=== PATIENT | female | born 1940 | race Caucasian/White ===

== ENCOUNTER 2023-10-27 06:47 | Day surgery (SDC) | payer MEDICARE, OTHER, SELFPAY ==
--- NOTE | 2023-10-10 13:19 | HP.PCM.OB_ITS ---
History and Physical Date of Admission: 10/27/23 Expand All Collapse All Pre-Op History and Physical HPI: The patient is a 82 year old female presenting for discussion regarding PMB- had light bleeding in August was switched from tamoxifen to letrozole. pre-operative visit. She is scheduled for Hysteroscopy D&C with Carolina, for PMB, thickened EM, on Tamoxifen on 10/27/23. Procedure discussed along with risks, benefits and complications. Other alternatives discussed for management. Consent form signed? Yes. PAST MEDICAL HISTORY PAST MEDICAL HISTORY Diagnosis Date ? Breast cancer (HCC) ? Essential hypertension ? Fungal infection in blood ? Pneumonia, viral PAST SURGICAL HISTORY PAST SURGICAL HISTORY Procedure Laterality Date ? LIGATE FALLOPIAN TUBE Bilateral ? PAST SURGICAL HISTORY OF Right lumpectomy ? PAST SURGICAL HISTORY OF Left 03/2022 left hip replacement ? PAST SURGICAL HISTORY OF Bilateral cataract removal CURRENT MEDICATIONS Current Outpatient Medications Medication Sig Dispense Refill ? methotrexate 2.5 mg tablet Take 3 tablets by mouth every Monday. 36 tabl et 0 ? folic acid 1 mg tablet Take 1 tablet by mouth once daily. 90 tablet 1 ? Etanercept (ENBREL SURECLICK) 50 mg/mL (1 mL) Inject 1 mL subcutaneously one time a week. 4 mL 5 ? hydrOXYchloroQUINE (PLAQUENIL) 200 mg tablet Take 1 tablet by mouth once daily. 90 tablet 1 ? predniSONE (DELTASONE) 5 mg tablet Take 1 tablet by mouth two times a day. 120 tablet 0 ? letrozole (FEMARA) 2.5 mg tablet Take 1 tablet by mouth once daily. 30 tablet 2 ? bisacodyl EC (DULCOLAX) 5 mg EC tablet Take 5 mg by mouth. ? verapamil SR (CALAN SR) 120 mg CR tablet ? traMADol (ULTRAM) 50 mg tablet Take 50 mg by mouth every 6 hours as needed for pain. ? acetaminophen (TYLENOL) 325 mg tablet Take 2 tablets by mouth every 6 hours as needed for pain. ? cyanocobalamin (VITAMIN B-12) 1,000 mcg tab Take 1 tablet by mouth once daily. ? hydrALAZINE (APRESOLINE) 50 mg tablet Take 1 tablet by mouth three times a day. ? nebivolol (BYSTOLIC) 5 mg tablet Take 1 tablet by mouth every morning. ? rosuvastatin (CRESTOR) 10 mg tablet Take 1 tablet by mouth once daily. ? verapamil SR (CALAN SR) 240 mg CR tablet Take 120 mg by mouth daily at bedtime. ? torsemide (DEMADEX) 20 mg tablet Take 1 tablet by mouth once daily. 30 tablet 0 ? gabapentin (NEURONTIN) 100 mg capsule Take 2 capsules by mouth every 12 hours for 30 days. No current facility-administered medications for this visit. ALLERGIES: Ondansetron, Oxycodone, Oxycodone-Acetaminophen, and Promethazine PERSONAL HISTORY: SOCIAL HISTORY Social History Tobacco Use ? Smoking status: Never Passive exposure: Never ? Smokeless tobacco: Never Vaping Use ? Vaping Use: Never used Substance Use Topics ? Alcohol use: Never ? Drug use: Never FAMILY HISTORY: FAMILY HISTORY No family history on file. REVIEW OF SYMPTOMS: negative except as noted above PHYSICAL EXAMINATION: VITALS: Blood pressure 128/74, pulse 73, SpO2 95%. GENERAL: The patient is well nourished, well hydrated in no acute distress. , The patient is oriented to time, place, and person. NECK: full range of motion LUNGS: Clear to auscultation bilaterally. no wheezes, rhonchi or rales HEART: Regular rate and rhythm, Normal heart sounds, and No murmurs or gallops GENITALIA: exam deferred WET PREP: Not indicated Uterus: -Size: 6.6 x 3.3 x 4.3 cm -Orientation: Anteverted -Endometrial echo complex: Evaluation of the endometrium was adequate. Multiple tiny cysts are visualized. The endometrial echo complex measured 1.0 cm. -Cervix: Unremarkable. -Adenomyosis assessment: There are no sonographic findings of adenomyosis. -Fibroids: There are no fibroids. Right Ovary: Not visualized. Left Ovary: Not visualized. Free Fluid: No abnormal free fluid is present. IMPRESSION: 82yo with PMB, Thickened EM - h/o Tamoxifen use. PLAN: Hysteroscopy, D&C with symphion Pt has been counseled on risks/benefits and alternatives of surgery including but not limited to anesthesia, bleeding, infection, uterine perforation with subsequent injury to pelvic structures including bowel, bladder, ureters and vessels. Pt wishes to proceed with surgery at this time. Pre and post op instructions reviewed - had labs done and EKG/ECHO done this year. I have reviewed and updated past medical and surgical history, medications and allergies Chikis Laguerre MD
[2023-10-27] VITALS (8 sets, daily range): BP systolic 125–143; BP diastolic 52–65; PULSE 55–64; RESP 16–18; TEMP 36.1–36.4; O2SAT 93–97; BMI 28.0
[2023-10-27] MEDS: Lactated Ringers 1,000 ML 15 ML IV (07:30)
--- NOTE | 2023-10-27 08:30 | EMB_PTH ---
PATIENT: LARISSA MCDUFFIE LOC: [facility] [place] U#:[id number] AGE/SX: 82/F ROOM: RE10/27/[address]: Dr. Chikis Currie, MDDOB: 1940 BED: DIS: 10/27/2023 SPEC #: [id number] RECD: 10/27/23 10:50 STATUS: MANUEL GIFFORD #: [id number] KISHAN: 10/27/23 08:[address]: Chikis Currie DEPT: SURGICAL PATHOLOGY RECD BY: Anamaria Reyes ENTERED: 10/27/23 12:34 SP TYPE: ENDOM BX/C DAWSON DR: Dr. Nando Summers MD Tissues: Endometrium, NOS Procedures: Surgery Specimen Level IV HEADER OPERATION: Hysteroscopy, D&C, symphion PRE-OP DIAGNOSIS: Postmenopausal bleeding, thickened endometrium TISSUE SUBMITTED: Endometrial curettings MICROSCOPIC DIAGNOSIS Endometrium, curettings: Scant fragments of benign inactive endometrium. Strips of benign superficial squamous mucosa. / 10/30/2023 MICROSCOPIC DESCRIPTION Slides are reviewed. GROSS DESCRIPTION Received in fixative is one container labeled with the patient's name and designated Endometrial curettings. The specimen consists of multiple fragments of hemorrhagic mucoid tissue that in aggregate measure 2.5 x 1.0 x 0.1 cm. The specimen is totally submitted in one cassette. AISHWARYA/ 10/27/2023 TC:5 CPT:15974
--- NOTE | 2023-10-27 08:36 | PRE.ANES_ITS ---
ASA Classification* ASA Classification ASA Classification: 2 Assessment & Plan Anesthesia* Anesthesia Assessment Anesthesia Assessment: Discussed sedation and/or anesthesia options, risks, benefits, and alternatives with patient/parents/legal guardian/POA. Questions invited. The patient/parents/legal guardian/POA seems to understand and agrees to proceed with anesthesia plan. Reviewed the physical assessment, medical history, allergy history and patient home medications list prior to surgery/procedure/anesthetic and documented any changes. Performed airway and anesthesia risk assessments. Anesthesia Type Anesthesia Type: MAC Pre-Assessment Diagnosis/Proposed Procedure Planned Operative Procedure(s): HYSTEROSCOPY D&C Anesthesia History Anesthesia History - occupational health physiotherapist: Anesthesia History - occupational health physiotherapist Hx Hospitalization Yes: 07/2023 DX WITH RA DUE 10/17/23 15:23 HYPERTENSION,EDEMA AND PAIN Any Problems With Anesthesia No 10/17/23 15:23 Cholinesterase deficiency No 10/17/23 15:23 You/Your Family Experience No 10/17/23 15:23 fever (hyperthermia) with Relationship Recent Exposure to Contagious No 10/27/23 07:30 Disease Does patient have nerve No 10/17/23 15:23 stimulator Patient instructed to have device shut off --Does patient have Pacemaker No 10/27/23 07:30 or ICD? When Was Last Pacemaker Check QUESTION #4 FULL TEXT: You/Your Family Experience fever (hyperthermia) with Anesthesia Last Oral Intake Last Oral intake: Last Oral Intake NPO since 19:00 10/27/23 07:30 Meds taken in AM with sips of Yes 10/27/23 07:30 water? Meds patient instructed to gabapentin, hydralazine, 10/27/23 07:30 take am of surgery nebivolol, hydroxychloroquine PONV PONV - occupational health physiotherapist: PONV - occupational health physiotherapist Female Yes 10/17/23 15:23 HX of Motion Sickness No 10/17/23 15:23 HX of N/V After Surgery No 10/17/23 15:23 Non-Smoker Yes 10/17/23 15:23 Duration of Surgery greater No 10/17/23 15:23 than 60 minutes Number of Risk Factors 2 10/17/23 15:23 PONV Score Moderate Risk 10/17/23 15:23 Height & Weight Height & Weight: Anesthesia: Height & Weight Height 5 ft 4 in 10/27/23 07:30 Weight: 74 kg 10/27/23 07:30 Body Mass Index (BMI) 28.0 10/27/23 07:30 Respiratory Assessment Respiratory Assessment - occupational health physiotherapist: Respiratory Tract Infection Hx - occupational health physiotherapist Hx Respiratory Tract Infection No 10/17/23 15:23 STOP Sleep Apnea STOP Sleep Apnea - occupational health physiotherapist: STOP Sleep Apnea - occupational health physiotherapist Hx Hypertension Yes: CONTROLLED WITH MEDS 10/17/23 15:23 Hx Sleep Apnea No 10/17/23 15:23 CPAP BIPAP Do you snore loudly (louder No 10/17/23 15:23 than talking or can be heard Do you often feel tired/ No 10/17/23 15:23 fatigued/ sleepy during daytime? Has anyone observed you stop No 10/17/23 15:23 breathing during sleep? STOP Results Negative 10/17/23 15:23 QUESTION #5 FULL TEXT : Do you snore loudly (louder than talking or can be heard through closed doors)? Tobacco Use History Tobacco Use History - occupational health physiotherapist: Tobacco Use History - occupational health physiotherapist Tobacco Use Smoking Status Former smoker 10/17/23 15:23 Hx Tobacco Use No 10/17/23 15:23 Years Smoking Packs Smoked per Day Smoking Cessation Date was No - quit smoking greater 10/17/23 15:23 within the last 15 years than 15 years ago Hx Smoking Cessation Date Hx Smoking Cessation No 10/17/23 15:23 Counseling Hematologic Medial History Hematologic Hx - occupational health physiotherapist: Hematologic Medical Hx - home and family living professor Hx of Blood Transfusion Yes 10/17/23 15:23 Hx of Transfusion in last 3 Yes 10/17/23 15:23 Months Date of Last Transfusion (if 07/202310/17/23 15:23 within last 3 months) Ever experience any problems No 10/17/23 15:23 with transfusion(s)? Specify any problems Hx of Preganancy in last 3 No 10/17/23 15:23 Months Nurse Filling Out Transfusion DSCHRIBER 10/17/23 15:23 & Questions: Date: 10/17/23 10/17/23 15:23 Time: 15:27 10/17/23 15:23 Patient unable to answer at this time (ie. confused, unrespo /Reproduction History /Reproductive History - occupational health physiotherapist: /Reproductive Hx- occupational health physiotherapist Hx Now No 10/17/23 15:23 Gestational Age (in weeks): EDC: Hx Hx Para Hx Section SAB No 10/17/23 15:23 Active Medications Active Medications: Current Medications Generic Name Dose Route Start Last Admin Trade Name Nikita PRN Reason Stop Dose Admin Lactated Ringer's 1,000 mls @ 15 mls/hr 10/27/23 07:00 10/27/23 07:30 IV 15 mls/hr .Q48H SADE Administration Anesthesia Focused Assessment* Temperature: 97.5 F Pulse Rate: 64 Blood Pressure: 131/52 Respiratory Rate: 18 Pulse Ox: 96 Airway Assessment Mouth opens: >3 cm Mallampati Score: II Focused Labs Anesthesia Preop lab: CBC CHEMISTRY COAG Review of Systems (Anesthesia) ROS Narrative System reviewed and no additional complaints, except as documented. [facility] Medical History Wears glasses Cancer History of steroid therapy Arthritis Walker as ambulation aid Rheumatoid arthritis Anemia High cholesterol Easy bruising Back pain Injury of back Migraine headache Former smoker History of pain when walking History of edema History of echocardiogram Hypertension Home Medications ?Medication ?Instructions ?Recorded ?Last Taken ?Type cholecalciferol (vitamin D3) 125 125 mcg PO DAILY 10/17/23 10/26/23 History mcg (5,000 unit) tablet (Vitamin D3) cyanocobalamin (vitamin B-12) 500 500 mcg PO DAILY 10/17/23 10/26/23 History mcg tablet docusate sodium 100 mg capsule 100 mg PO BID 10/17/23 10/26/23 History (Colace) folic acid 1 mg tablet 1 mg PO DAILY 10/17/23 10/26/23 History gabapentin 100 mg capsule 100 mg PO BID 10/17/23 10/27/23 History hydralazine 50 mg tablet 50 mg PO DAILY 10/17/23 10/27/23 History hydroxychloroquine 200 mg tablet 200 mg PO DAILY 10/17/23 10/27/23 History letrozole 2.5 mg tablet 2.5 mg PO DAILY 10/17/23 Unknown History methotrexate sodium 2.5 mg tablet 7.5 mg PO MO 10/17/23 10/23/23 History nebivolol 5 mg tablet 5 mg PO DAILY 10/17/23 10/27/23 History prednisone 10 mg tablet 5 mg PO BID 10/17/23 10/26/23 History rosuvastatin 10 mg tablet 10 mg PO QHS 10/17/23 10/26/23 History spironolactone 25 mg tablet 25 mg PO MOWEFR 10/17/23 10/25/23 History torsemide 20 mg tablet 10 mg PO DAILY 10/17/23 10/26/23 History verapamil 240 mg tablet,extended 120 mg PO QPM 10/17/23 10/26/23 History release vitamins A,C,U-ewwh-mmiuet 4,296 1 cap PO BID 10/17/23 10/26/23 History mcg-226 mg-90 mg capsule (PreserVision AREDS) Allergy/AdvReac Type Severity Reaction Status Date / Time adhesive tape AdvReac Intermediate Other Verified 10/27/23 07:23 Surgical History Hx of total hip arthroplasty Hx of right cataract extraction Hx of left cataract extraction History of esophagogastroduodenoscopy (EGD) Hx of colonoscopy Hx of appendectomy History of tubal ligation History of lumpectomy of right breast Social History Smoking Status: Former smoker
--- NOTE | 2023-10-27 08:51 | DCINST_ITS ---
Discharge Instructions Diet Discharge Diet: No restrictions Activity May resume sexual activity in: 1 week Dressing / Incision Call your doctor if you observe: Fever of 101 or Higher, Inability to urinate, Using more than 1 pad per hour and Uncontrolled pain Follow Up Care Please Follow Up With: Chikis Currie MD When: 1-2 weeks post OP if you need an appointment please call [phone] Test Results: Test results from this visit will be discussed in further detail at your follow- up appointment, if applicable. Discharge Plan Admission Attending Provider: Chikis Currie Primary Care Provider: Nando Smumers Instructions Print Language: Nepali Discharge Orders/Prescriptions Prescriptions: No Action methotrexate sodium 2.5 mg tablet 7.5 mg PO MO PreserVision AREDS 4,296 mcg-226 mg-90 mg capsule 1 cap PO BID nebivolol 5 mg tablet 5 mg PO DAILY torsemide 20 mg tablet 10 mg PO DAILY hydralazine 50 mg tablet 50 mg PO DAILY spironolactone 25 mg tablet 25 mg PO MOWEFR gabapentin 100 mg capsule 100 mg PO BID prednisone 10 mg tablet 5 mg PO BID docusate sodium [Colace] 100 mg capsule 100 mg PO BID hydroxychloroquine 200 mg tablet 200 mg PO DAILY cyanocobalamin (vitamin B-12) 500 mcg tablet 500 mcg PO DAILY folic acid 1 mg tablet 1 mg PO DAILY letrozole 2.5 mg tablet 2.5 mg PO DAILY rosuvastatin 10 mg tablet 10 mg PO QHS cholecalciferol (vitamin D3) [Vitamin D3] 125 mcg (5,000 unit) tablet 125 mcg PO DAILY verapamil 240 mg tablet extended release 120 mg PO QPM Referrals / Follow Up: Nando Summers MD [Primary Care Provider] - Disposition Disposition (needs filled in before D/C Order can be placed): Home, Self Care
--- NOTE | 2023-10-27 08:52 | PCM.OPRPT ---
Report of Operation Date of Procedure: 10/27/23 Pre-Operative Diagnosis: PMB, Thickened Endometrium, Personal h/o of tamoxifen use Post-Operative Diagnosis: same Surgery/Procedure Performed:: Hysteroscopy, D&C Description of Surgical Findings:: Atrophic appearing Endometrium, no polyps noted Surgeon: Chikis Currie organ tuner electronic: None Type of Anesthesia: MAC Specimen's removed: Endometrial curettings Drains: none Estimated Blood Loss (mL): <5cc Fluids Replaced: 500cc Description of Procedure: Informed consent was obtained the patient was taken the operating room she was placed in supine position. She was given anesthesia. She was then placed in the [facility] where she was prepped and draped in the normal sterile fashion. Bladder drained prior to start of procedure At this time the weighted speculum was placed in the posterior fornix of vagina. Single-tooth tenaculum was used to gently grasp the anterior lip the cervix. At this time the uterine cavity was sounded to approximately 7 cm. Gentle dilatation was performed once adequate dilatation of the cervix was achieved the hysteroscope using normal saline as a distention medium was placed. Tubal ostia visualized Endometrium appeared atrophic, no lesion noted. Sharp curettage performed, scant tissue. Tissue will be sent to pathology for evaluation. Tenaculum removed. Good hemostasis. Instrument, lap count correct x 2. Vaginal Sweep was negative. Fluid deficit minimal Grafts/Implants Used: none Procedure Start Time: 08:56 Procedure Stop Time: 09:01 Complications none Admit VTE Documentation VTE Present on Admission: Yes VTE Mechan Device Prophylaxis: SCD's VTE Pharm Prophylaxis ordered?: Yes Reason prophylaxis not ordered:: Procedure Not Indicated
--- NOTE | 2023-10-27 09:14 | PCM.POST.ANE ---
Anesthesia: Postop Eval I Current Vital Signs Temperature: 97.3 F Pulse Rate: 55 Blood Pressure: 127/59 Respiratory Rate: 18 Pulse Ox: 96 Oxygen Delivery Method: Room Air Assessment Airway patent: Yes Spontaneous unlabored respirations: Yes Mental status: Awake nausea: No Vomiting: No Anesthesia Complication: No Fluid Hydration Crystalloid volume administer (ml): 500 Total IV fluid infused: 500 Progress Note Anesthesia document: Postop Eval 1 completed: Yes
--- NOTE | 2023-10-27 09:29 | POSTOPAN2_ITS ---
Anesthesia Postop Eval I Sum Postop Eval Completion status Anesthesia document: Postop Eval 1 completed: Yes Anesthesia Postop Eval I Summary Anesthesia Postop Eval I Summary: Anesthesia Postop Eval I: Assessment Summary Airway patent Yes 10/27/23 09:16 CABLE TELEVISION ACCESS COORDINATOR.CSIR Spontaneous unlabored Yes 10/27/23 09:16 CABLE TELEVISION ACCESS COORDINATOR.CSIR respirations Mental status Awake 10/27/23 09:16 CABLE TELEVISION ACCESS COORDINATOR.CSIR nausea No 10/27/23 09:16 CABLE TELEVISION ACCESS COORDINATOR.CSIR Vomiting No 10/27/23 09:16 CABLE TELEVISION ACCESS COORDINATOR.CSIR Anesthesia Postop Eval I: Fluid Summary Crystalloid volume administer 500 10/27/23 09:16 CABLE TELEVISION ACCESS COORDINATOR.CSIR (ml) Colloids volume administered ( ml) Blood Product volume administered (ml) Total IV fluid infused 500 10/27/23 09:16 CABLE TELEVISION ACCESS COORDINATOR.CSIR Anesthesia Postop Eval I: Summary Notes Anesthesia Complication No 10/27/23 09:16 CABLE TELEVISION ACCESS COORDINATOR.CSIR Anesthesia Complication Comment: Post-operative progress note Anesthesia: Postop Eval II Evaluation Mental status: Awake Pain Level: 0 nausea: No Vomiting: No Complications Anesthesia Complication: No
--- NOTE | 2023-10-27 09:29 | PCM.POSTANE2 ---
Anesthesia Postop Eval I Sum Postop Eval Completion status Anesthesia document: Postop Eval 1 completed: Yes Anesthesia Postop Eval I Summary Anesthesia Postop Eval I Summary: Anesthesia Postop Eval I: Assessment Summary Airway patent Yes 10/27/23 09:16 RELAY SHOP TESTER.CSIR Spontaneous unlabored Yes 10/27/23 09:16 RELAY SHOP TESTER.CSIR respirations Mental status Awake 10/27/23 09:16 RELAY SHOP TESTER.CSIR nausea No 10/27/23 09:16 RELAY SHOP TESTER.CSIR Vomiting No 10/27/23 09:16 RELAY SHOP TESTER.CSIR Anesthesia Postop Eval I: Fluid Summary Crystalloid volume administer 500 10/27/23 09:16 RELAY SHOP TESTER.CSIR (ml) Colloids volume administered ( ml) Blood Product volume administered (ml) Total IV fluid infused 500 10/27/23 09:16 RELAY SHOP TESTER.CSIR Anesthesia Postop Eval I: Summary Notes Anesthesia Complication No 10/27/23 09:16 RELAY SHOP TESTER.CSIR Anesthesia Complication Comment: Post-operative progress note Anesthesia: Postop Eval II Evaluation Mental status: Awake Pain Level: 0 nausea: No Vomiting: No Complications Anesthesia Complication: No
== END 2023-10-27 09:49 | disposition home or self-care (01) ==
LOC: SDC 06:51 → AC 06:53
PROVIDERS: PCP Internal Medicine; Referring Provider Obstetrics & Gynecology; Visit Provider Obstetrics & Gynecology
PROC: 0UB98ZZ Excision of Uterus, Via Natural or Artificial Opening Endoscopic (ICD-10-PCS; CPT 58558; principal; 2023-10-27 08:15)
DX: N95.0 Postmenopausal bleeding (principal); I10 Essential (primary) hypertension; Z79.899 Other long term (current) drug therapy; R93.89 Abnormal findings on diagnostic imaging of other specified body structures; E78.00 Pure hypercholesterolemia, unspecified; Z79.52 Long term (current) use of systemic steroids
CPT/HCPCS: 58558; 00952; 88305; J7120; J2405